=== PATIENT | female | born 1945 | race Caucasian/White ===

== ENCOUNTER 2018-01-06 07:00 | Day surgery (SDC) | payer OTHER ==
[~2018-01-06 07:00] MED LIST: TROP 1%/CYCLOPEN 1%/PHENYL 2% DROPS ONE
[2018-01-06] MEDS ORDERED: MIDAZOLAM INJ 2 MG/2 ML VIAL ONE (07:02)
[2018-01-06] MEDS: PROPARACAINE 0.5% OPHTH SOL 15 ML BTTL ONE ×2 (07:35→08:34)
[2018-01-06] MEDS: TOBRAMYCIN SULF 0.3 % OPHT SOL 1 DROP RIGHT_EYE ONE ×2 (07:35→08:46)
[2018-01-06] MEDS ORDERED: LIDOCAINE 1% PF 2 ML AMP INJ ONE (08:40)
[2018-01-06] MEDS ORDERED: DEXAMETHASONE 0.1% OPHTH SOL 1 DROP RIGHT_EYE ONE ×2 (08:45→08:53)
[2018-01-06] MEDS ORDERED: BRIMONIDINE 0.2% OPHTH DROPS RIGHT_EYE ONE ×2 (08:46→08:53)
[2018-01-06] MEDS ORDERED: TOBRAMYCIN SULF 0.3 % OPHT SOL 1 DROP RIGHT_EYE ONE (08:53)
[2018-01-06 11:49] VITALS: BP 128/72; TEMP 97.5; O2SAT 98
== END 2018-01-06 09:40 | disposition home or self-care (01) ==
LOC: AMB 07:00
PROVIDERS: ATTEND Ophthalmology
DX: H25.11 Age-related nuclear cataract, right eye (principal); F17.210 Nicotine dependence, cigarettes, uncomplicated

== ENCOUNTER 2018-01-20 05:40 | Day surgery (SDC) | payer OTHER ==
[2018-01-20] MEDS ORDERED: TROP 1%/CYCLOPEN 1%/PHENYL 2% DROPS ONE (05:59)
[2018-01-20] MEDS ORDERED: MIDAZOLAM INJ 2 MG/2 ML VIAL ONE (06:51)
[2018-01-20] MEDS: PROPARACAINE 0.5% OPHTH SOL 15 ML BTTL ONE ×3 (07:39→08:18)
[2018-01-20] MEDS: TOBRAMYCIN SULF 0.3 % OPHT SOL 1 DROP LEFT_EYE ONE ×2 (07:39→08:40)
[2018-01-20] MEDS ORDERED: TROP 1%/CYCLOPEN 1%/PHENYL 2% DROPS OPHTH ONE (07:39)
[2018-01-20] MEDS ORDERED: LIDOCAINE 1% PF 2 ML AMP INJ ONE (08:22)
[2018-01-20] MEDS ORDERED: TOBRAMYCIN SULF 0.3 % OPHT SOL 1 DROP LEFT_EYE ONE (08:27)
[2018-01-20] MEDS ORDERED: DEXAMETHASONE 0.1% OPHTH SOL 1 DROP LEFT_EYE ONE ×2 (08:27→08:40)
[2018-01-20] MEDS ORDERED: BRIMONIDINE 0.2% OPHTH DROPS LEFT_EYE ONE ×2 (08:28→08:40)
[2018-01-20 14:46] VITALS: BP 133/76; TEMP 97.5; O2SAT 96
== END 2018-01-20 09:15 | disposition home or self-care (01) ==
LOC: AMB 05:40
PROVIDERS: ATTEND Ophthalmology
DX: H25.12 Age-related nuclear cataract, left eye (principal)